=== PATIENT | female | born 1945 | race African-American/Black ===

== ENCOUNTER → 2017-03-02 | Outpatient (CLI) | payer MEDICARE ==
--- NOTE | ~2017-03-02 | MY29 ---
[facility] RADIOLOGY TEXT RESULTS PATIENT: GENNA BRIAN V LOCATION: [facility] : 41 UNIT #: [id number] AGE: [address]: Josselin Cantu MD SEX: F ORDER DR: [id number] [facility] [address] [place], [place] [address] [id number] O MR#: [id number] Acc #: [id number] NAME: GENNA BRIAN : 1945 SEX: F STUDY DATE/TIME: 03/02/2017 11:34 UNIT: [facility] ROOM: STUDY DESCRIPTION: MY JAYDEN SCREENING W/ CAD BILAT Attending Physician: Josselin Cantu M.D. Referring Physician: Josselin Cantu M.D. Ordering Physician: Josselin Cantu M.D. Primary Care Physician: Josselin Cantu M.D. MEDICAL IMAGING REPORT This report is preliminary unless electronic signature is present EXAM Digital screening mammogram, 03/02/2017. There is [facility] HISTORY A 71-year-old woman, no risk elevation. Multiple moles. Annual screening comparison mammograms date to 01/31/2008 with most recent 12/20/2015 FINDINGS Digital imaging of each breast was completed utilizing a two-view examination of each breast in craniocaudal and mediolateral-oblique projections. Review and interpretation of digital mammograms include a second review in conjunction with FDA-approved CAD device. There is a normal parenchymal presentation bilaterally consistent with the patient's age. There are no breast masses imaged and no parenchymal asymmetry is visualized. There are no suspicious microcalcifications and I see no focal architectural disturbance. IMPRESSION Negative screening digital mammogram. One-year followup recommended. Patients over the age of 40 are entered into a reminder system with target due date for the next mammogram. A result letter will also be sent to the patient. BIRADS: 1 Negative ADDENDUM Breast parenchyma is predominantly fatty replaced Dictated by... Blu Ward M.D. [facility] of [facility] RADIOLOGY TEXT RESULTS PATIENT: GENNA BRIAN V LOCATION: [facility] : 41 UNIT #: [id number] AGE: [address]: Josselin Cantu MD SEX: F ORDER DR: THIS IS AN ELECTRONICALLY VERIFIED REPORT Blu Ward M.D. at 03/02/2017 1:00 PM Rohan TD: 03/02/2017 12:45 JOB #: [id number] MEDICAL IMAGING REPORT Page 1 of 1 COPY
== END | disposition home or self-care (01) ==
LOC: CWCC 11:15
DX: Z12.31 Encounter for screening mammogram for malignant neoplasm of breast (principal); R92.8 Other abnormal and inconclusive findings on diagnostic imaging of breast
CPT/HCPCS: G0202